=== PATIENT | female | born 2000 | race Caucasian/White ===

== ENCOUNTER 2020-10-18 00:05 | Emergency (ER) | payer OTHER ==
--- NOTE | 2020-10-18 00:22 | EDM.PDOC ---
ED HPI GENERAL MEDICAL PROBLEM - General Chief Complaint: Gastrointestinal Problem Stated Complaint: THORWING UP Time Seen by Provider: 10/18/20 00:21 Source of Information: Reports: Patient History Limitations: Reports: No Limitations - History of Present Illness INITIAL COMMENTS - FREE TEXT/NARRATIVE: Tracy is a 20-year-old female from [place], [place] who is camping and dev eloped acute onset of nausea and vomiting around 2000 hrs. tonight. She has vomited at least 8-10 times. Her emesis has been bilious. She has had a low- grade fever. She has abdominal cramping but denies any diarrhea. She has not eaten anything abnormal or drink anything. She denies any marijuana use. She has had a bit of a diminished appetite today. Patient also reported us that she recently stopped her oral contraceptive and is having breakthrough menses right now. She initially thought that the abdominal pain was due to premenstrual cramping, however, it is worsened since the onset of bleeding which is not typical for her periods. In addition she does not normally vomit with her premenstrual cramping. Abdominal Pain Score (Numeric/FACES): 4 - Related Data Allergies Allergy/AdvReac Type Severity Reaction Status Date / Time No Known Allergies Allergy Verified 10/18/20 00:16 Home Meds: Home Meds NK [No Known Home Meds] 10/18/20 [History] Past Medical History Neurological History: Reports: Migraines Social & Family History - Family History Family Medical History: No Pertinent Family History - Tobacco Use Tobacco Use Status *Q: Never Tobacco User - Caffeine Use Caffeine Use: Reports: Coffee, Tea - Recreational Drug Use Recreational Drug Use: No ED ROS GENERAL - Review of Systems Review Of Systems: See Below Constitutional: Reports: Fever (Low-grade), Chills HEENT: Reports: No Symptoms Respiratory: Reports: No Symptoms Cardiovascular: Reports: No Symptoms Endocrine: Reports: No Symptoms GI/Abdominal: Reports: Abdominal Pain (Abdominal cramping), Nausea, Vomiting : Reports: Pain Musculoskeletal: Reports: No Symptoms Skin: Reports: No Symptoms Neurological: Reports: No Symptoms Psychiatric: Reports: No Symptoms Hematologic/Lymphatic: Reports: No Symptoms Immunologic: Reports: No Symptoms ED EXAM, GI/ABD - Physical Exam Exam: See Below Exam Limited By: No Limitations General Appearance: Alert, Anxious, Mild Distress Eyes: Bilateral: EOMI Throat/Mouth: Normal Inspection, Normal Oropharynx, Normal Voice, No Airway Compromise Head: Atraumatic, Normocephalic Neck: Normal Inspection, Supple, Non-Tender, Full Range of Motion. No: Lymphadenopathy (R), Lymphadenopathy (L) Respiratory/Chest: No Respiratory Distress, Lungs Clear, Normal Breath Sounds Cardiovascular: Normal Peripheral Pulses, Regular Rate, Rhythm, No Murmur GI/Abdominal Exam: Normal Bowel Sounds, Soft, Tender (Mild tenderness in lower abdomen bilaterally). No: Guarding, Rigid, Rebound Back Exam: Normal Inspection, Full Range of Motion Extremities: Normal Inspection, Normal Range of Motion Neurological: Alert, Oriented, Normal Cognition, No Motor/Sensory Deficits Psychiatric: Normal Affect, Normal Mood Skin Exam: Warm, Dry, Intact, Normal Color Lymphatic: No Adenopathy Course - Vital Signs Last Recorded V/S: Last Vital Signs Temp 36.8 C 10/18/20 00:17 Pulse 86 10/18/20 00:17 Resp 16 10/18/20 00:17 BP 118/78 10/18/20 00:17 Pulse Ox 98 10/18/20 00:17 - Orders/Labs/Meds Orders: Active Orders 24 hr Category Date Time Status Sodium Chloride 0.9% [Normal Saline] 1,000 ml Med 10/18/20 00:45 Active IV ASDIRECTED Sodium Chloride 0.9% [Saline Flush] Med 10/18/20 00:34 Active 10 ml FLUSH ASDIRECTED PRN Saline Lock Insert [OM.PC] Routine Oth 10/18/20 00:34 Ordered Medication Orders Sodium Chloride (Normal Saline) 1,000 mls @ 999 mls/hr IV ASDIRECTED SIDRA Last Admin: 10/18/20 00:48 Dose: 999 mls/hr Documented by: MILLA Sodium Chloride (Sodium Chloride 0.9% 10 Ml Syringe) 10 ml FLUSH ASDIRECTED PRN PRN Reason: Keep Vein Open Last Admin: 10/18/20 00:48 Dose: 10 ml Documented by: MILLA Labs: Laboratory Tests 10/18/20 10/18/20 Range/Units 00:50 00:50 WBC 11.6 H (4.5-11.0) K/uL RBC 4.12 (3.30-5.50) M/uL Hgb 12.1 (12.0-15.0) g/dL Hct 36.3 (36.0-48.0) % MCV 88 (80-98) fL MCH 29 (27-31) pg MCHC 33 (32-36) % Plt Count 220 (150-400) K/uL Neut % (Auto) 90.4 H (36-66) % Lymph % (Auto) 6.7 L (24-44) % [place] % (Auto) 2.8 (2-6) % Eos % (Auto) 0.0 L (2-4) % Baso % (Auto) 0.1 (0-1) % Sodium 137 L (140-148) mmol/L Potassium 3.8 (3.6-5.2) mmol/L Chloride 100 (100-108) mmol/L Carbon Dioxide 24 (21-32) mmol/L Anion Gap 16.8 H (5.0-14.0) mmol/L BUN 14 (7-18) mg/dL Creatinine 0.8 (0.6-1.0) mg/dL Est Cr Clr Drug Dosing 96.86 mL/min Estimated GFR (MDRD) > 60 (>60) Glucose 147 H (74-106) mg/dL Calcium 9.1 (8.5-10.1) mg/dL Total Bilirubin 0.4 (0.2-1.0) mg/dL AST 18 (15-37) U/L ALT 18 (12-78) U/L Alkaline Phosphatase 65 (46-116) U/L Total Protein 7.5 (6.4-8.2) g/dL Albumin 3.9 (3.4-5.0) g/dL Globulin 3.6 H (2.3-3.5) g/dL Albumin/Globulin Ratio 1.1 L (1.2-2.2) Lipase 85 (73-393) U/L Meds: Medications Generic Name Dose Route Start Last Admin Trade Name Freq PRN Reason Stop Dose Admin Sodium Chloride 1,000 mls @ 999 mls/hr 10/18/20 00:45 10/18/20 00:48 Normal Saline IV 999 mls/hr ASDIRECTED SIDRA Administration Sodium Chloride 10 ml 10/18/20 00:34 10/18/20 00:48 Sodium Chloride 0.9% 10 Ml Syringe FLUSH 10 ml ASDIRECTED PRN Administration Keep Vein Open Discontinued Medications Generic Name Dose Route Start Last Admin Trade Name Jeancarlos PRN Reason Stop Dose Admin Ketorolac Tromethamine 30 mg 10/18/20 00:34 10/18/20 00:49 Ketorolac 30 Mg/Ml Sdv IVPUSH 10/18/20 00:35 30 mg ONETIME ONE Administration Ondansetron HCl 4 mg 10/18/20 00:34 10/18/20 00:49 Ondansetron 4 Mg/2 Ml Sdv IVPUSH 10/18/20 00:35 4 mg ONETIME ONE Administration - Re-Assessments/Exams Free Text/Narrative Re-Assessment/Exam: 10/18/20 01:33 the patient received a liter of IV normal saline, 4 mg IV of Zofran and is feeling improved after rehydration and nausea medicine. Labs were reviewed showing a mild leukocytosis at 11.6 with a normal hemoglobin of 12.1 and hematocrit of 36.3. Platelet count is 220,000. Her comprehensive metabolic panel is normal and her lipase is 85 which is also normal. This is likely a viral gastroenteritis. The abdominal pain may be a combination of cramping from the gastroenteritis and premenstrual or perimenstrual cramping. We will send her home with a prescription from the [facility] for Zofran for continued nausea. At this time, I believe the patient is suitable for discharge back to her [facility]. Indications return to ED were discussed. Departure - Departure Time of Disposition: 01:50 Disposition: Home, Self-Care 01 Clinical Impression: Viral gastroenteritis Nausea and vomiting Qualifiers: Vomiting type: bilious vomiting Qualified Code(s): R11.14 - Bilious vomiting - Discharge Information Instructions: Viral Gastroenteritis, Adult, [id number], Nausea and Vomiting, Adult Referrals: PCP,None [Primary Care Provider] - Forms: ED Department Discharge Care Plan Goals: Your work-up today shows that you likely have a viral gastroenteritis (stomach flu). You will probably develop diarrhea over the next 12 hours. I would make sure that you are drinking adequate fluid as to not get dehydrated. We will put you on Zofran which is an nausea medicine to control the nausea so you are able to remain hydrated. I would recommend against any diarrhea L medications like Pepto-Bismol, Imodium, or Kaopectate as these just prolong your body's ability to get rid of the virus and may the diarrhea lasts longer. Good handwashing after using the bathroom will be important as you can reinfect yourself or others if they come in contact with your stool. This is very contagious. I would also recommend following the BRAT diet standing for bananas, rice, applesauce, and toast which are items that are easier to digest and less likely to cause increased vomiting or diarrhea. Sepsis Event Note (ED) - Evaluation Sepsis Screening Result: No Definite Risk - Focused Exam Vital Signs: Vital Signs Temp Pulse Resp BP Pulse Ox 10/18/20 00:17 36.8 C 86 16 118/78 98 - Problem List & Annotations (1) Nausea and vomiting SNOMED Code(s): 29086341 Code(s): R11.2 - NAUSEA WITH VOMITING, UNSPECIFIED Status: Acute Priority: Medium Current Visit: Yes Qualifiers: Vomiting type: bilious vomiting Qualified Code(s): R11.14 - Bilious vomiting (2) Viral gastroenteritis SNOMED Code(s): 143711160 Code(s): A08.4 - VIRAL INTESTINAL INFECTION, UNSPECIFIED Status: Acute Priority: Medium Current Visit: Yes - Problem List Review Problem List Initiated/Reviewed/Updated: Yes - My Orders Last 24 Hours: My Active Orders 10/18/20 00:34 Sodium Chloride 0.9% [Saline Flush] 10 ml FLUSH ASDIRECTED PRN Saline Lock Insert [OM.PC] Routine 10/18/20 00:45 Sodium Chloride 0.9% [Normal Saline] 1,000 ml IV ASDIRECTED - Assessment/Plan Last 24 Hours: My Active Orders 10/18/20 00:34 Sodium Chloride 0.9% [Saline Flush] 10 ml FLUSH ASDIRECTED PRN Saline Lock Insert [OM.PC] Routine 10/18/20 00:45 Sodium Chloride 0.9% [Normal Saline] 1,000 ml IV ASDIRECTED
[2020-10-18] MEDS ORDERED: Ondansetron 4 MG/2 ML SDV IVPUSH ONE (00:34)
[2020-10-18] MEDS ORDERED: Ketorolac 30 MG/ML SDV IVPUSH ONE (00:34)
[2020-10-18] MEDS ORDERED: Sodium Chloride 0.9% 10 ML Syringe FLUSH PRN (00:34)
[2020-10-18] MEDS ORDERED: Sodium Chloride 0.9% 1,000 ML IV SCH (00:45)
== END 2020-10-18 01:57 | disposition home or self-care (01) ==
LOC: JP.ED 00:05
DX: A08.4 Viral intestinal infection, unspecified (principal)
CPT/HCPCS: 36415; 80053; 83690; 85025; 96374; 96375; 99284; 99284-25; J1885; J2405; J7030

== ENCOUNTER 2020-10-18 18:24 | Inpatient (IN) | payer OTHER ==
[2020-10-18] MEDS ORDERED: Ondansetron 4 MG/2 ML SDV IVPUSH ONE (20:45)
[2020-10-18] MEDS ORDERED: Ketorolac 30 MG/ML SDV IVPUSH ONE (20:47)
--- NOTE | 2020-10-18 20:53 | EDM.PDOC ---
ED HPI GENERAL MEDICAL PROBLEM - General Chief Complaint: Abdominal Pain Stated Complaint: ABD PAIN AND FEVER Time Seen by Provider: 10/18/20 20:35 Source of Information: Reports: Patient History Limitations: Reports: No Limitations - History of Present Illness INITIAL COMMENTS - FREE TEXT/NARRATIVE: This is a 20 year old female presenting with abdominal pain and vomiting. She reports that she woke up yesterday with her stomach just feeling a little off. It remained that way all day until around 8pm last night when she started vomiting. She vomited multiple times last night and subsequently came to the ED last night to be evaluated. She had labs that were unremarkable and was treated symptomatically. she felt improved and was sent home. She reports that she woke up a few hours later with continued abdominal discomfort and nausea. She vomited this morning and again this evening. She reports lower abdominal pain that seems to be worsening, though does not localize it to one side or the other. She had a fever up to 101 today. She tried zofran at home without improvement of nausea or vomiting. she did take tylenol, but vomited it back up. She denies diarrhea or urinary symptoms. She is currently on her period and admits to having some irregular vaginal bleeding recently. She did recently stop taking her OCPs. - Related Data Allergies Allergy/AdvReac Type Severity Reaction Status Date / Time No Known Allergies Allergy Verified 10/18/20 00:16 Home Meds: Home Meds NK [No Known Home Meds] 10/18/20 [History] Past Medical History Neurological History: Reports: Migraines Social & Family History - Family History Family Medical History: No Pertinent Family History - Caffeine Use Caffeine Use: Reports: Coffee, Tea ED ROS GENERAL - Review of Systems Review Of Systems: Comprehensive ROS is negative, except as noted in HPI. ED EXAM, GI/ABD - Physical Exam Exam: See Below Exam Limited By: No Limitations General Appearance: Alert, WD/WN, No Apparent Distress Throat/Mouth: Normal Oropharynx Head: Atraumatic, Normocephalic Neck: Non-Tender, Full Range of Motion Respiratory/Chest: No Respiratory Distress, Lungs Clear, Normal Breath Sounds, No Accessory Muscle Use Cardiovascular: Regular Rate, Rhythm GI/Abdominal Exam: Soft, Tender (RLQ). No: Distended, Guarding, Rigid, Rebound Extremities: Normal Range of Motion, No Pedal Edema Neurological: Alert, Oriented, CN II-XII Intact Psychiatric: Normal Affect, Normal Mood Skin Exam: Warm, Dry, Intact Course - Vital Signs Last Recorded V/S: Last Vital Signs Temp 98 F 10/18/20 20:27 Pulse 97 10/18/20 20:27 Resp 17 10/18/20 20:27 BP 114/64 10/18/20 20:27 Pulse Ox 99 10/18/20 20:27 - Orders/Labs/Meds Orders: Active Orders 24 hr Category Date Time Status Preg Urine [HCG QUALITATIVE,URINE] [URCHEM] Stat Lab 10/18/20 20:44 Ordered UA W/MICROSCOPIC [URIN] Stat Lab 10/18/20 20:44 Ordered Iopamidol [Isovue-300 (61%)] Med 10/18/20 21:00 Active 88 ml IV . DIRECTED Piperacillin/Tazobactam [Zosyn] 4.5 gm Med 10/18/20 21:55 Active Sodium Chloride 0.9% [Normal Saline] 100 ml IV ONETIME Sodium Chloride 0.9% [Normal Saline] Med 10/18/20 21:00 Active 1,000 ml IV BOLUS Sodium Chloride 0.9% [Normal Saline] 1,000 ml Med 10/18/20 22:10 Active IV .BOLUS Sodium Chloride 0.9% [Normal Saline] 70 ml Med 10/18/20 21:00 Active IV ASDIRECTED Medication Orders Sodium Chloride (Normal Saline) 70 mls @ 3 mls/sec IV ASDIRECTED SIDRA Last Admin: 10/18/20 21:09 Dose: 3 mls/sec Documented by: FRANSISCO Piperacillin Sod/Tazobactam (Sod 4.5 gm/ Sodium Chloride) 100 mls @ 100 mls/hr IV ONETIME ONE Stop: 10/18/20 22:54 Sodium Chloride (Normal Saline) 1,000 mls @ 999 mls/hr IV .BOLUS ONE Stop: 10/18/20 23:10 Last Admin: 10/18/20 22:12 Dose: 999 mls/hr Documented by: MILLA Iopamidol (Iopamidol 612 Mg/Ml 100 Ml Bottle) 88 ml IV . DIRECTED SIDRA Last Admin: 10/18/20 21:09 Dose: 88 ml Documented by: FRANSISCO Sodium Chloride (Sodium Chloride 0.9% 10 Ml Sdv) 1,000 ml IV BOLUS [facility] Labs: Laboratory Tests 10/18/20 10/18/20 Range/Units 20:44 21:08 WBC 11.9 H (4.5-11.0) K/uL RBC 4.22 (3.30-5.50) M/uL Hgb 12.5 (12.0-15.0) g/dL Hct 37.2 (36.0-48.0) % POC Hct 35 L (36-48) % MCV 88 (80-98) fL MCH 30 (27-31) pg MCHC 34 (32-36) % Plt Count 215 (150-400) K/uL Neut % (Auto) 88.7 H (36-66) % Lymph % (Auto) 5.7 L (24-44) % [place] % (Auto) 5.6 (2-6) % Eos % (Auto) 0.0 L (2-4) % Baso % (Auto) 0.0 (0-1) % POC Capillary pH 7.41 (7.31-7.41) POC Capillary pCO2 42.3 (41.0-51.0) mmHg POC Capillary pO2 26 L* mmHg POC Capillary HCO3 26.8 (23.0-28.0) mmol/L POC Capill Base Excess 2 mmol/L POC Capillary O2 Sat 48 % POC O2 Flow Rate TNP POC Sodium 138 L (140-148) mmol/L POC Potassium 3.6 (3.5-4.9) mmol/L POC Total CO2 28 (24-29) mmol/L POC WB Ioniz Calcium 1.21 (1.12-1.32) mmol/L Meds: Medications Generic Name Dose Route Start Last Admin Trade Name Freq PRN Reason Stop Dose Admin Sodium Chloride 70 mls @ 3 mls/sec 10/18/20 21:00 10/18/20 21:09 Normal Saline IV 3 mls/sec ASDIRECTED SIDRA Administration Piperacillin Sod/Tazobactam 100 mls @ 100 mls/hr 10/18/20 21:55 Sod 4.5 gm/ Sodium Chloride IV 10/18/20 22:54 ONETIME ONE Sodium Chloride 1,000 mls @ 999 mls/hr 10/18/20 22:10 10/18/20 22:12 Normal Saline IV 10/18/20 23:10 999 mls/hr .BOLUS ONE Administration Iopamidol 88 ml 10/18/20 21:00 10/18/20 21:09 Iopamidol 612 Mg/Ml 100 Ml Bottle IV 88 ml . DIRECTED SIDRA Administration Sodium Chloride 1,000 ml 10/18/20 21:00 Sodium Chloride 0.9% 10 Ml Sdv IV BOLUS SIDRA Discontinued Medications Generic Name Dose Route Start Last Admin Trade Name Lennyq PRN Reason Stop Dose Admin Ketorolac Tromethamine 30 mg 10/18/20 20:47 10/18/20 22:12 Ketorolac 30 Mg/Ml Sdv IVPUSH 10/18/20 20:48 30 mg ONETIME ONE Administration Ondansetron HCl 4 mg 10/18/20 20:45 10/18/20 22:12 Ondansetron 4 Mg/2 Ml Sdv IVPUSH 10/18/20 20:46 4 mg ONETIME ONE Administration Departure - Departure Time of Disposition: 22:14 Disposition: Admitted As Inpatient 66 Clinical Impression: Acute appendicitis - Discharge Information Referrals: PCP,None [Primary Care Provider] - Forms: ED Department Discharge Sepsis Event Note (ED) - Focused Exam Vital Signs: Vital Signs Temp Pulse Resp BP Pulse Ox 10/18/20 20:27 98 F 97 17 114/64 99 - Problem List Review Problem List Initiated/Reviewed/Updated: Yes - My Orders Last 24 Hours: My Active Orders 10/18/20 20:44 Preg Urine [HCG QUALITATIVE,URINE] [URCHEM] Stat UA W/MICROSCOPIC [URIN] Stat 10/18/20 21:00 Iopamidol [Isovue-300 (61%)] 88 ml IV . DIRECTED Sodium Chloride 0.9% [Normal Saline] 1,000 ml IV BOLUS Sodium Chloride 0.9% [Normal Saline] 70 ml IV ASDIRECTED 10/18/20 21:55 Piperacillin/Tazobactam [Zosyn] 4.5 gm Sodium Chloride 0.9% [Normal Saline] 100 ml IV ONETIME 10/18/20 22:10 Sodium Chloride 0.9% [Normal Saline] 1,000 ml IV .BOLUS - Assessment/Plan Last 24 Hours: My Active Orders 10/18/20 20:44 Preg Urine [HCG QUALITATIVE,URINE] [URCHEM] Stat UA W/MICROSCOPIC [URIN] Stat 10/18/20 21:00 Iopamidol [Isovue-300 (61%)] 88 ml IV . DIRECTED Sodium Chloride 0.9% [Normal Saline] 1,000 ml IV BOLUS Sodium Chloride 0.9% [Normal Saline] 70 ml IV ASDIRECTED 10/18/20 21:55 Piperacillin/Tazobactam [Zosyn] 4.5 gm Sodium Chloride 0.9% [Normal Saline] 100 ml IV ONETIME 10/18/20 22:10 Sodium Chloride 0.9% [Normal Saline] 1,000 ml IV .BOLUS Plan: This is a 20 year old female presenting with abdominal pain and vomiting. She has RLQ tenderness on exam and the concern is for acute appendicitis. Labs notable for WBC of 11.9. CT abd/pelvis was obtained and showed acute appendicitis without perforation or abscess. It was also noted that there was signs of ileus as well. The patient was treated with toradol, zofran, IVF, and zosyn was started. The patient was discussed with the administrative professional surgeon, Dr. Comer, who will admit the patient and plan to operate in the morning.
[2020-10-18] MEDS ORDERED: Iopamidol 612 MG/ML 100 ML Bottle IV SCH (21:00)
[2020-10-18] MEDS ORDERED: Sodium Chloride 0.9% 10 ML SDV IV SCH (21:00)
--- NOTE | 2020-10-18 21:49 | CRLCT ---
For Patients: As a result of the Century Cures Act, medical imaging exams and procedure reports are released immediately into your electronic medical record. You may view this report before your referring provider. If you have questions, please contact your health care provider. INDICATION: Right lower quadrant abdominal pain, vomiting. TECHNIQUE: CT abdomen and pelvis acquired with 88 mL Isovue-300 contrast. COMPARISON: None. FINDINGS: Lower chest: No consolidation. Liver: No suspicious focal hepatic lesion. Gallbladder and bile ducts: Unremarkable. Pancreas: Unremarkable. Spleen: Unremarkable. Adrenal glands: Unremarkable. Kidneys: Kidneys enhance symmetrically, without hydronephrosis. Retroperitoneum: No lymphadenopathy. Bowel and mesentery: Significantly dilated appendix measuring up to 1.4 cm, with extensive periappendiceal inflammatory stranding. Scattered prominent but nondilated loops of small bowel are present in the right lower quadrant of the abdomen, probably reflective of ileus. A single isolated prominent loop of small bowel in the left lower quadrant of the abdomen is also noted, which is not dilated by size criteria, and may also reflect component of ileus. No pneumoperitoneum. Bladder: Decompressed. Reproductive organs: Unremarkable. Pelvic lymph nodes: No lymphadenopathy. Vessels: Unremarkable. Abdominal wall: No acute abdominal wall abnormality. Bones: No suspicious/aggressive focal osseous lesion. Bilateral L5 pars defects. IMPRESSION: 1. Acute appendicitis. 2. Scattered prominent loops of small bowel, likely reflective of ileus. Please note that all CT scans at this facility use dose modulation, iterative reconstruction, and/or weight-based dosing when appropriate to reduce radiation dose to as low as reasonably achievable. Dictated by Ed Cheng MD @ 10/18/2020 9:47:[address] Ed Cheng @ Oct 18 2020 9:47PM
[2020-10-18] MEDS ORDERED: Piperacillin/Tazobactam 4.5 GM in Sodium Chloride 0.9% 100 ML IV ONE (21:55)
[2020-10-18] MEDS ORDERED: Sodium Chloride 0.9% 1,000 ML IV ONE (22:10)
[2020-10-18] MEDS ORDERED: HYDROmorphone 0.5 MG/0.5 ML Syringe IVPUSH ONE (22:30)
[2020-10-18] MEDS ORDERED: Acetaminophen 325 MG Tab PO PRN (23:25)
[2020-10-18] MEDS ORDERED: Ondansetron 4 MG/2 ML SDV IVPUSH PRN (23:25)
[2020-10-18] MEDS ORDERED: Sodium Chloride 0.9% 1,000 ML IV SCH (23:30)
[2020-10-19] MEDS: HYDROmorphone 0.5 MG/0.5 ML Syringe IVPUSH PRN ×6 (01:27→21:56)
[2020-10-19] MEDS ORDERED: Piperacillin/Tazobactam 4.5 GM in Sodium Chloride 0.9% 100 ML IV SCH ×3 (06:00)
[2020-10-19] MEDS ORDERED: Bupivacaine 0.5%/EPINEPHrine 1:200,000 50 ML MDV ONE (06:47)
[2020-10-19] MEDS ORDERED: Meropenem 500 MG SDV ONE ×2 (06:47→08:41)
[2020-10-19] MEDS ORDERED: Neostigmine Methylsulfate 1 MG/ML 5 ML Syringe ONE (07:42)
[2020-10-19] MEDS ORDERED: Ondansetron 4 MG/2 ML SDV ONE (07:42)
[2020-10-19] MEDS ORDERED: Glycopyrrolate 0.2 MG/ML 5 ML MDV ONE (07:42)
[2020-10-19] MEDS ORDERED: Succinylcholine 200 MG/10 ML MDV ONE (07:42)
[2020-10-19] MEDS ORDERED: Dexamethasone 4 MG/ML SDV ONE (07:42)
[2020-10-19] MEDS ORDERED: Propofol 200 MG/20 ML SDV ONE (07:42)
[2020-10-19] MEDS ORDERED: Rocuronium 50 MG/5 ML Vial ONE (07:42)
[2020-10-19] MEDS ORDERED: fentaNYL 250 MCG/5 ML SDV ONE (07:44)
[2020-10-19] MEDS ORDERED: Ropivacaine 34 ML, dexAMETHasone 8 MG, EPINEPHrine 0.4 MG, Sodium Chloride 0.9% 43.6 ML NERVRT SCH ×4 (07:45)
[2020-10-19] MEDS ORDERED: Lactated Ringers 1,000 ML ONE (07:59)
[2020-10-19] MEDS ORDERED: fentaNYL 100 MCG/2 ML SDV ONE (08:02)
[2020-10-19] MEDS ORDERED: Ondansetron 4 MG/2 ML SDV IVPUSH PRN (10:41)
[2020-10-19] MEDS ORDERED: HYDROmorphone 1 MG/ML Syringe IV PRN (10:43)
[2020-10-19] MEDS ORDERED: hydrOXYzine HCL 100 MG/2 ML SDV IM PRN (10:47)
[2020-10-19] MEDS: Pantoprazole 40 MG Vial IV SCH (11:22)
[2020-10-19] MEDS: Acetaminophen 500 MG Tab PO SCH ×3 (11:23→23:03)
[2020-10-19] MEDS: Piperacillin/Tazobactam/Dext 4.5 GM in Premix Bag 1 BAG IV SCH ×2 (13:43→21:58)
[2020-10-19] MEDS: Ibuprofen 600 MG Tab PO SCH ×2 (15:20→21:00)
[2020-10-19] MEDS: Dextrose 5%-Lactated Ringers 1,000 ML IV SCH ×2 (15:59→23:19)
[2020-10-20] MEDS: Ibuprofen 600 MG Tab PO SCH ×4 (02:52→20:49)
[2020-10-20] MEDS: Acetaminophen 500 MG Tab PO SCH ×4 (05:04→22:31)
[2020-10-20] MEDS: Piperacillin/Tazobactam/Dext 4.5 GM in Premix Bag 1 BAG IV SCH ×3 (05:25→22:32)
[2020-10-20] MEDS: Dextrose 5%-Lactated Ringers 1,000 ML IV SCH (07:06)
[2020-10-20] MEDS: Potassium Phos in 0.9 % NaCl 15 MMOL in Premix Bag 1 BAG IV SCH ×6 (09:00→14:02)
[2020-10-20] MEDS: Bisacodyl 5 MG Tab PO SCH ×2 (09:08→20:49)
[2020-10-20] MEDS: Docusate Sodium 100 MG Cap PO SCH ×2 (09:08→20:48)
[2020-10-20] MEDS: Pantoprazole 40 MG Vial IV SCH (11:07)
[2020-10-21] MEDS: Ibuprofen 600 MG Tab PO SCH ×2 (03:57→08:44)
[2020-10-21] MEDS: Acetaminophen 500 MG Tab PO SCH ×2 (04:00→10:57)
[2020-10-21] MEDS: Piperacillin/Tazobactam/Dext 4.5 GM in Premix Bag 1 BAG IV SCH (05:56)
[2020-10-21] MEDS ORDERED: Pantoprazole 40 MG Tab.CR PO SCH (07:30)
[2020-10-21] MEDS: Docusate Sodium 100 MG Cap PO SCH (08:44)
[2020-10-21] MEDS: Bisacodyl 5 MG Tab PO SCH (08:44)
[2020-10-21] MEDS ORDERED: Amoxicillin/Clavulanate K 875-125 MG Tab PO SCH (09:00)
--- NOTE | 2020-10-21 20:06 | DISCH ---
ADMISSION DIAGNOSIS: Acute appendicitis. DISCHARGE DIAGNOSES: Laparoscopic appendectomy for acute appendicitis. Surgeon, Quan Comer MD. Date of procedure 10/19/2020. Abdominal fluid aspiration, rare gram-positive cocci. HISTORY: Tracy Dobbins is a 20-year-old female who presented to the emergency room on 10/18/2020 at 2035 hours with abdominal pain and vomiting. After preoperative evaluation and discussion of possible risks and possible complications, she wished to proceed with surgical procedure. Surgery was on 10/19/2020. She had no operative complications. On postoperative day #1, she continued with IV antibiotics. She had 3 JASON drains and was started on clear liquid diet, advanced to full liquid diet. On postoperative day #2, she was able to be discharged to home. She had 3 JASON drains, which drained 35, 60 and 20 of a serosanguineous drainage. Her urine output was adequate and oral intake adequate. She remained afebrile and pain was controlled with Tylenol and ibuprofen. REVIEW OF SYSTEMS: Remainder of review of systems negative for any pertinent positives and negatives. OBJECTIVE: GENERAL: Tracy Dobbins is a pleasant 20-year-old female. VITAL SIGNS: Height is 5 feet 4 inches,. Weight is 151 pounds. BMI is 25.9. TPR: 96, 62, 16. Blood pressure 113/66. HEENT: Negative. NECK: Supple. HEART: Regular rate and rhythm. LUNGS: Clear. ABDOMEN: She has an abdominal binder on. Trocar sites and sutures healing well. She has 3 JASON drains as noted above and these will be removed prior to discharge. FOLLOWUP APPOINTMENT: With Andria Villaseñor PA-C on 10/29/2020 at 10 a.m. PRESCRIPTIONS: 1. Augmentin 875 mg 1 tablet every 12 hours for 7 days. 2. Colace 100 mg oral twice daily, #60. 3. Milk of magnesia 30 mL, 1 daily, 2 were sent home with the patient. 4. Ibuprofen 600 mg q.12 hours, #40. 5. Tylenol 1000 mg q.6 hours. DIET: Usual diet as tolerated. Drink 8 to 10 glasses of water a day. ACTIVITY: No lifting over 10 pounds for 2 weeks. OTHER ACTIVITY: Walk 6 times daily. Driving: After discharge, do not drive for 1 week. Shower/bathing: May shower. Notify provider if any fever, increased pain, swelling, redness, drainage, nausea, or vomiting. Wound incision care: Keep site clean and dry. Wear abdominal binder for 2 weeks and then as tolerated. Special instructions: Use incentive spirometer 10 times every hour while awake. When traveling, walk around 3 minutes for every 1 hour in the car. /[id number]
--- NOTE | 2020-11-02 15:28 | OR ---
DATE OF PROCEDURE: 10/19/2020 SURGEON: Quan Comer MD PREOPERATIVE DIAGNOSIS: Acute appendicitis. POSTOPERATIVE DIAGNOSES: Acute appendicitis with perforation of adjacent cecum and extensive pericolonic and pelvic abscess. OPERATIVE PROCEDURES: Diagnostic laparoscopy with: 1. Partial cecectomy (including overlying attached appendix), (50136). 2. Drainage of pericolonic and pelvic abscess (40389). 3. Extensive peritoneal irrigation with meropenem-containing saline solution (2 liters). ANESTHESIA: General. INDICATIONS FOR PROCEDURE: This is a 20-year-old admitted overnight with a picture of acute appendicitis. Plan is to proceed with diagnostic laparoscopy, laparotomy if necessary, appendectomy, and other procedures as indicated. Potential risks including bleeding, infection, leaks from various possible GI tract closures as well as possibility of cardiopulmonary, septic, or hemorrhagic complications leading to were discussed, and the patient wishes to proceed. DETAILS OF PROCEDURE: The patient was taken to the operating room, placed in a supine position. After general endotracheal anesthesia was induced, Hernandez catheter was inserted and the abdomen prepped and draped. 3 cm superior and to the left of the umbilicus, a transverse incision was made. The peritoneal cavity was entered under direct vision with an Optiview trocar, inflated to 15 mmHg pressure with CO2. The laparoscope was then reinserted. No underlying trocar insertion site injuries were seen. Following this, 12 mm trocars were placed in the right upper quadrant and left lower quadrant and eventually 2 drains were placed through a 5 mm trocar placed in the right lateral abdomen. Upon entering the peritoneal cavity, the patient was noted to have extensive purulent fluid present in the right pericolic gutter extending upward underneath the right diaphragm. Additionally, the patient had a large amount of purulent material within the pelvis. These areas were all evacuated. Cultures of this were obtained and initial Gram stain showed gram- positive cocci. Much of the purulent material was initially aspirated at this point. The area of the was then identified after brief dissection of some loose adhesions in that area. Interestingly, the patient was noted to have a perforation of the cecum more or less adjacent to the appendiceal base, likely reflective of necrosis of the adjacent cecal mucosa and cecal wall resulting in that point of perforation. Given this, the mesoappendix was then divided with the Harmonic scalpel, and the cecum was then raised up and divided across its base with SHERON purple loads. The point of staple line came up more or less adjacent to the ileocecal valve and did not impinge on its luminal course and the specimen consisting of the cecal base and appendix was then delivered from the field through a specimen bag. Good hemostasis was noted at this point. The abdomen was then irrigated with 2 L of meropenem-containing saline solution irrigating all areas of the abdomen. Care was taken to go through the small bowel for its length to remove any interloop abscesses that might be present and eventually all areas appeared to be reasonably clear. Two Martín-Haines drains were then placed through the trocars that had been placed in the right midabdomen and one directed over the cecal closure site and from there into the pelvis, and then one along the right colic gutter directed superiorly including up underneath the right diaphragm. The drains were secured with some 4-0 Vicryl stitch. At this point, fibrin sealant was placed across the cecal staple line and the trocars were then sequentially removed. The fascia at the 12 mm sites was closed with 0 Vicryl stitch. The patient was quite thin and the specimen had been retrieved through the sterile specimen bag, so we felt at this point it would be reasonable to close the skin which was accomplished with some 4-0 Vicryl skin stitch. Dressings were applied. The patient was taken to the recovery room in satisfactory condition. Quan Comer MD /[id number]
--- NOTE | 2020-11-02 16:06 | PN ---
DATE OF SERVICE: 10/20/2020 The patient has been afebrile with stable vital signs. No major problems were noted. Urine output has been satisfactory. Labs showed no significant problems this morning other than for a low phosphate. We will give her some supplementary potassium phosphate today. Otherwise, we will go up to a full-liquid diet and begin some bowel stimulation and continue present antibiotics and go over to strictly oral pain medication. Quan Comer MD /[id number]
== END 2020-10-21 13:45 | disposition home or self-care (01) | DRG 329 ==
LOC: JP.ED 18:24 → JP.ICU 22:43 → JP.MS 10-20 05:43
PROVIDERS: ADMIT Surgery; ATTEND Surgery
PROC: 0DTJ4ZZ Resection of Appendix, Percutaneous Endoscopic Approach (ICD-10-PCS; principal; 2020-10-19)
PROC: 0DBH4ZZ Excision of Cecum, Percutaneous Endoscopic Approach (ICD-10-PCS; 2020-10-19)
PROC: 0W9J4ZZ Drainage of Pelvic Cavity, Percutaneous Endoscopic Approach (ICD-10-PCS; 2020-10-19)
DX: K35.33 Acute appendicitis with perforation, localized peritonitis, and gangrene, with abscess (principal); K55.049 Acute infarction of large intestine, extent unspecified; G43.909 Migraine, unspecified, not intractable, without status migrainosus
CPT/HCPCS: 36415; 74177; 80048; 80053; 81001; 81025; 82330; 82803; 83735; 84100; 84132; 84295; 85014; 85025; 85027; 87070; 87075; 87077; 87186; 87205; 88304; 94762; 96365; 96375; 99285-25; A9270-GY; C9113; J0171; J0330; J1100; J1170; J1885; J2185; J2405; J2543; J2704; J2710; J2795; J3010; J3410; J3490; J7030; J7120; J7121; Q9967